=== PATIENT | male | born 1930 | race Caucasian/White ===

== ENCOUNTER 2016-06-20 06:03 | Emergency (ER) | payer SELFPAY ==
[~2016-06-20] VITALS: Ht 177.8 cm; Wt 78.0 kg
[2016-06-20 06:06] VITALS: BP 138/94
== END 2016-06-20 06:27 | disposition short-term general hospital (02) ==
LOC: ED 06:15
DX: Z02.9 Encounter for administrative examinations, unspecified (principal)